=== PATIENT | male | born 1970 | race Caucasian/White ===

== ENCOUNTER 2021-09-05 14:40 | Emergency (ER) | payer SELFPAY ==
[~2021-09-05] VITALS: Ht 180.3 cm; Wt 84.3 kg
[2021-09-05] MEDS ORDERED: LIDOCAINE 1% INJ 20 ML VIAL ONE (14:54)
[2021-09-05] MEDS ORDERED: LIDOCAINE 1% INJ 20 ML VIAL INJ ONE (15:00)
[2021-09-05] MEDS ORDERED: HYDROcodone/APAP 5 MG/325 MG (LORTAB) TAB PO ONE (15:00)
[2021-09-05] MEDS ORDERED: CEPHALEXIN 250 MG (KEFLEX) CAP PO SCH (15:00)
--- NOTE | 2021-09-05 15:22 | ED Upper Extremity ---
General Chief Complaint: Upper Extremity Stated Complaint: L RING LAC Nursing Triage Note: pt ambulatory to room. pt states he got his left ring finger jammed between a ball and a hitch while hooking up a trailer prior to arrival. pt states he went to urgent care first but they sent him here. Source: patient Exam Limitations: no limitations (GENESIS HERNANDEZ APRN) History of Present Illness Date Seen by Provider: Sep 05, 2021 Time Seen by Provider: 15:22 Initial Comments To ER with a left ring finger laceration. This was crushed between the trailer hitch and the ball on the truck just prior to arrival tetanus is not up-to-date. Onset: just prior to arrival Severity: moderate Pain/Injury Location: left 4th finger Method of Injury: direct blow Modifying Factors: Worse With Movement (GENESIS HERNANDEZ APRN) Allergies and Home Medications Allergies Coded Allergies: No Known Drug Allergies (Unverified , 09/05/21) Patient Home Medication List Home Medication List Reviewed: Yes (GENESIS HENRANDEZ APRN) Cephalexin (Cephalexin) 500 Mg Tablet, 500 MG PO TID Prescribed by: GENESIS HERNANDEZ on 09/05/21 1614 Hydrocodone/Acetaminophen (Hydrocodone-Acetamin 5-325 mg) 5 Mg-325 Mg Tablet, 1 TAB PO Q4H PRN for PAIN-MODERATE (5-7) Prescribed by: GENESIS HERNANDEZ on 09/05/21 1614 Review of Systems Constitutional: see HPI EENTM: see HPI Respiratory: no symptoms reported Cardiovascular: no symptoms reported Genitourinary: no symptoms reported Musculoskeletal: see HPI Skin: no symptoms reported, change in hair/nails (GENESIS HERNANDEZ APRN) Past Nljyfho-Itfrom-Gptodl Hx Patient Social History Tobacco Use?: Yes Tobacco type used: Cigarettes Smoking Status: Current Everyday Smoker Use of E-Cig and/or Vaping dev: No Substance use?: Yes Substance type: Marijuana Substance frequency: Once in a while Alcohol Use?: No (GENESIS HERNANDEZ APRN) Immunizations Up To Date Influenza Vaccine Up-to-Date: No; Not Current COVID19 Vaccine Software Support [employer]: [employer] (GENESIS HERNANDEZ APRN) Physical Exam Vital Signs Vital Signs - First Documented 09/05/21 14:40 Temp 37.0 Pulse 125 Resp 16 B/P (MAP) 146/104 (118) Pulse Ox 95 O2 Delivery Room Air (MAURO KIMBLE MD) Vital Signs Capillary Refill : (GENESIS HERNANDEZ APRN) Height, Weight, BMI Height: '" Weight: lbs. oz. kg; 25.00 BMI Method: General Appearance: WD/WN, no apparent distress HEENT: PERRL/EOMI, normal ENT inspection Neck: non-tender, full range of motion Respiratory: no respiratory distress, no accessory muscle use Gastrointestinal: normal bowel sounds Shoulder: normal inspection, non-tender Elbow/Forearm: normal inspection, non-tender Wrist: Yes normal inspection, Yes non-tender Hand: Left, laceration (Open fracture distal phalanx left ring finger. The distal tissue has capillary refill of less than 3 seconds.) Neurologic/Psychiatric: alert, normal mood/affect, oriented x 3 Skin: normal color, warm/dry (GENESIS HERNANDEZ APRN) Progress/Results/Core Measures Results/Orders Medications Given in ED Current Medications Medications Dose Ordered Sig/Adrián Route Start Time Stop Time Status Last Admin Dose Admin Acetaminophen/ Hydrocodone Bitart 1 ea ONCE ONCE PO 09/05/21 15:00 09/05/21 15:01 DC 09/05/21 15:02 1 EA Diphtheria/ Tetanus/Acell Pertussis 0.5 ml ONCE ONCE IM 09/05/21 16:30 09/05/21 16:31 DC 09/05/21 16:29 0.5 ML Lidocaine HCl 20 ml ONCE ONCE INJ 09/05/21 15:00 09/05/21 15:01 DC 09/05/21 15:02 20 ML (MAURO KIMBLE MD) Vital Signs/I&O 09/05/21 09/05/21 14:40 16:30 Temp 37.0 Pulse 125 95 Resp 16 B/P (MAP) 146/104 (118) 149/102 Pulse Ox 95 95 O2 Delivery Room Air (MAURO KIMBLE MD) Blood Pressure Mean: 118 Departure Communication (Admissions) 1610-area was anesthetized via a digital block using 8 mL of 1% lidocaine without epinephrine. After about 20 minutes the wound was thoroughly irrigated clots evacuated and no foreign bodies identified. Fingertip was lined up and sutured in place with 7 simple interrupted sutures size 3-0 Vicryl so that these do not have to be removed. We will put some Xeroform then tube gauze in place and then have him come back on Wednesday for dressing removal and wound check. If it is okay at that point he should be able to leave this off and just apply a Band-Aid with a finger splint and follow-up with orthopedics. Antibiotic and pain medication sent into [facility] across the street. (GENESIS HERNANDEZ APRN) Impression Primary Impression: Open fracture of phalanx of left ring finger Disposition: HOME, SELF-CARE Condition: Stable Departure-Patient Inst. Decision time for Depature: 16:12 (GENESIS HERNANDEZ APRN) Referrals: NO,LOCAL PHYSICIAN (PCP) Primary Care Physician ELIZABETH DODGE MD,JEVON JIMENEZ MD, MD Patient Instructions: Finger Fracture ED Add. Discharge Instructions: 1. The stitches do not need to be removed. Return to ER on Wednesday to have the wound dressing removed and the wound reevaluated. As long as it looks okay we should be able to take this dressing off and just have a bandage in place and a splint. You will not need the splint until this bulky dressing is removed. Keep this bulky dressing in place clean and dry until it is removed on Wednesday. Pain medication and antibiotics as directed. All discharge instructions reviewed with patient and/or family. Voiced understanding. Scripts Hydrocodone/Acetaminophen (Hydrocodone-Acetamin 5-325 mg) 5 Mg-325 Mg Tablet 1 TAB PO Q4H PRN for PAIN-MODERATE (5-7), #20 TAB Prov: GENESIS HERNANDEZ APRN 09/05/21 Cephalexin (Cephalexin) 500 Mg Tablet 500 MG PO TID, #21 TAB Prov: GENESIS HERNANDEZ APRN 09/05/21 ATTENDING PHYSICIAN NOTE: I was physically present as attending physician in the emergency department during the care of this patient, but I was not directly involved in the decision making or delivery of care for this patient. (MAURO KIMBLE MD) GENESIS HERNANDEZ APRN Sep 05, 2021 15:22 MAUOR KIMBLE MD Sep 05, 2021 20:38
--- NOTE | 2021-09-05 15:47 | Diagnostic Imaging Report ---
INDICATION: Right hand pain, 4th digit pinched between ball and trailer hitch. TECHNIQUE: Single view left hand with 2 additional views left ring finger, 3:31 PM. CORRELATION STUDY: None. FINDINGS: There is a comminuted but predominantly transverse linear fracture through the mid 4th distal phalanx. There is diastasis of approximately 5 mm in main fracture line. The distal interphalangeal joint is maintained. There is apparent soft tissue defect at the area of fracture. No radiographic evidence of foreign body. Remaining osseous structures are otherwise intact. IMPRESSION: Transversely oriented comminuted displaced 4th distal phalanx fracture. Associated overlying soft tissue defect. Dictated by: Dictated on workstation # [id number]
[2021-09-05] MEDS ORDERED: CEPH500T PO (16:14)
[2021-09-05] MEDS ORDERED: ACHD5005 PO (16:14)
[2021-09-05 16:30] VITALS: BP 149/102
[2021-09-05] MEDS ORDERED: TETANUS,DIPTH,PERTUSS P/F (BOOSTRIX) 0.5 ML VIAL IM ONE (16:30)
== END 2021-09-05 16:35 | disposition home or self-care (01) ==
LOC: EDUNIT# 14:40 → ER 14:43
DX: S62.635B Displaced fracture of distal phalanx of left ring finger, initial encounter for open fracture (principal); Z23 Encounter for immunization; F17.210 Nicotine dependence, cigarettes, uncomplicated; W23.0XXA Caught, crushed, jammed, or pinched between moving objects, initial encounter
CPT/HCPCS: 12042; 73140; 90715